=== PATIENT | male | born 1955 | race Hispanic/Latino ===

== ENCOUNTER 2019-04-05 11:16 | Emergency (ER) | payer OTHER ==
[~2019-04-05 11:16] MED LIST: ACET-66 PO; GABA-531 PO; TRAM50TA2 PO
== END 2019-04-05 11:44 | disposition home or self-care (01) ==
LOC: EDH 11:16
DX: H61.23 Impacted cerumen, bilateral (principal); E11.9 Type 2 diabetes mellitus without complications; Z90.49 Acquired absence of other specified parts of digestive tract; Z72.0 Tobacco use
CPT/HCPCS: 99281

== ENCOUNTER 2020-01-19 08:57 | Emergency (ER) | payer OTHER ==
[2020-01-19 09:43] LABS: BASOPHILS % (AUTO) 0.7 % (0.0-5.0); EOSINOPHILS % (AUTO) 4.7 % (0.0-8.0); LYMPHOCYTES % (AUTO) 22.6 % (21.0-51.0); MEAN CORPUSCULAR HEMOGLOBIN 31.4 pg (27.0-33.0); MEAN CORPUSCULAR HGB CONC 34.3 g/dL (32.0-36.0); MEAN CORPUSCULAR VOLUME 91.5 fL (79-99); NEUTROPHILS % (AUTO) 61.4 % (40.0-77.0); PLATELET COUNT (AUTO) 161 K/uL (130-400); RED BLOOD CELL COUNT(AUTO) 4.81 MIL/uL (4.50-6.20); RED CELL DISTRIBUTION WIDTH 12.6 % (11.0-15.5); WHITE BLOOD COUNT (AUTO) 6.8 K/uL (4.8-10.8)
[2020-01-19 09:54] LABS: CREATININE 0.9 mg/dL (0.5-1.5); POTASSIUM 4.8 mmol/L (3.5-5.1)
[2020-01-19 09:56] LABS: ALBUMIN 3.7 g/dL (3.5-5.0); BILIRUBIN,TOTAL 0.6 mg/dL (0.2-1.0); TOTAL PROTEIN, SERUM 7.7 g/dL (6.0-8.3)
== END 2020-01-19 10:22 | disposition home or self-care (01) ==
LOC: EDH 08:57
DX: S91.331A Puncture wound without foreign body, right foot, initial encounter (principal); L03.115 Cellulitis of right lower limb; E11.9 Type 2 diabetes mellitus without complications; Z90.49 Acquired absence of other specified parts of digestive tract; Z72.0 Tobacco use; W26.8XXA Contact with other sharp object(s), not elsewhere classified, initial encounter; Y93.89 Activity, other specified; Y92.098 Other place in other non-institutional residence as the place of occurrence of the external cause; Y99.8 Other external cause status
CPT/HCPCS: 36415; 73630; 80053; 85025

== ENCOUNTER 2020-01-22 13:48 | Emergency (ER) | payer OTHER ==
[2020-01-22 15:24] LABS: BASOPHILS % (AUTO) 0.7 % (0.0-5.0); EOSINOPHILS % (AUTO) 3.3 % (0.0-8.0); LYMPHOCYTES % (AUTO) 21.1 % (21.0-51.0); MEAN CORPUSCULAR HEMOGLOBIN 31.3 pg (27.0-33.0); MEAN CORPUSCULAR VOLUME 92.1 fL (79-99); MONOCYTES % (AUTO) 7.8 % (3.0-13.0); NEUTROPHILS % (AUTO) 66.7 % (40.0-77.0); PLATELET COUNT (AUTO) 196 K/uL (130-400); RED BLOOD CELL COUNT(AUTO) 4.67 MIL/uL (4.50-6.20); RED CELL DISTRIBUTION WIDTH 12.7 % (11.0-15.5); WHITE BLOOD COUNT (AUTO) 6.9 K/uL (4.8-10.8)
[2020-01-22] MEDS ORDERED: LIDOCAINE HCL 2% VISCOUS 15 ML UDCUP ONE (15:27)
[2020-01-22] MEDS ORDERED: MAG HYDROX/AL HYDROX/SIMETH ES 30 ML SUSP UDCUP ONE (15:28)
[2020-01-22] MEDS ORDERED: HYOSCYAMINE SULFATE 0.125 MG TAB.SUBL SL ONE (15:28)
[2020-01-22 15:38] LABS: POTASSIUM 4.5 mmol/L (3.5-5.1)
[2020-01-22 15:44] LABS: ALBUMIN 3.8 g/dL (3.5-5.0); BILIRUBIN,DIRECT 0.1 mg/dL (0.0-0.3); BILIRUBIN,TOTAL 0.4 mg/dL (0.2-1.0); TOTAL PROTEIN, SERUM 6.9 g/dL (6.0-8.3)
== END 2020-01-22 17:20 | disposition home or self-care (01) ==
LOC: EDH 13:48
DX: S91.331A Puncture wound without foreign body, right foot, initial encounter (principal); L03.115 Cellulitis of right lower limb; E11.40 Type 2 diabetes mellitus with diabetic neuropathy, unspecified; X58.XXXA Exposure to other specified factors, initial encounter; Y93.89 Activity, other specified; Y92.89 Other specified places as the place of occurrence of the external cause; Y99.8 Other external cause status
CPT/HCPCS: 36415; 73620; 80048; 80076; 83690; 84145; 85025; 86140

== ENCOUNTER 2020-05-06 09:11 | Emergency (ER) | payer OTHER, SELFPAY ==
[2020-05-06] MEDS ORDERED: SODIUM CHLORIDE 0.9% 1000ML 1,000 ML IV ONE (10:27)
[2020-05-06] MEDS ORDERED: ONDANSETRON HCL 4 MG/2 ML VIAL ONE (10:27)
[2020-05-06 10:31] LABS: BASOPHILS % (AUTO) 0.2 % (0.0-5.0); LYMPHOCYTES % (AUTO) 23.8 % (21.0-51.0); MEAN CORPUSCULAR HEMOGLOBIN 30.7 pg (27.0-33.0); MEAN CORPUSCULAR HGB CONC 34.3 g/dL (32.0-36.0); MEAN CORPUSCULAR VOLUME 89.5 fL (79-99); MONOCYTES % (AUTO) 11.5 % (3.0-13.0); NEUTROPHILS % (AUTO) 62.7 % (40.0-77.0); PLATELET COUNT (AUTO) 175 K/uL (130-400); RED BLOOD CELL COUNT(AUTO) 5.14 MIL/uL (4.50-6.20); RED CELL DISTRIBUTION WIDTH 12.8 % (11.0-15.5); WHITE BLOOD COUNT (AUTO) 4.8 K/uL (4.8-10.8)
[2020-05-06 10:46] LABS: ALBUMIN 3.4 g/dL (3.5-5.0); BILIRUBIN,TOTAL 0.6 mg/dL (0.2-1.0); CREATININE 0.6 mg/dL (0.5-1.5); POTASSIUM 5.2 mmol/L (3.5-5.1); TOTAL PROTEIN, SERUM 7.1 g/dL (6.0-8.3)
[2020-05-06] MEDS ORDERED: CEFTRIAXONE SODIUM 1 GM ONE (11:51)
[2020-05-06] MEDS ORDERED: AZITHROMYCIN 250 MG TABLET PO ONE (11:51)
[2020-05-06] MEDS ORDERED: SODIUM CHLORIDE 0.9% 50 ML IV ONE (11:52)
== END 2020-05-06 12:18 | disposition home or self-care (01) ==
LOC: EDH 09:11
DX: U07.1 COVID-19 (principal); J12.89 Other viral pneumonia; R19.7 Diarrhea, unspecified; E11.9 Type 2 diabetes mellitus without complications; Z90.49 Acquired absence of other specified parts of digestive tract; Z72.0 Tobacco use
CPT/HCPCS: 36415; 71045; 80053; 85025; 93005; 96361; 96374; 96375; 99285; J0696; J2405; J7030; U0003

== ENCOUNTER 2020-05-27 10:29 | Emergency (ER) | payer OTHER, SELFPAY ==
[2020-05-27] MEDS ORDERED: SODIUM CHLORIDE 0.9% 1000ML 1,000 ML IV ONE (10:30)
[2020-05-27] MEDS ORDERED: ONDANSETRON HCL 4 MG/2 ML VIAL ONE (11:23)
[2020-05-27] MEDS ORDERED: KETOROLAC TROMETHAMINE 30MG/ML ONE (11:23)
[2020-05-27 11:25] LABS: EOSINOPHILS % (AUTO) 1.5 % (0.0-8.0); LYMPHOCYTES % (AUTO) 14.4 % (21.0-51.0); MEAN CORPUSCULAR HEMOGLOBIN 29.7 pg (27.0-33.0); MEAN CORPUSCULAR HGB CONC 33.9 g/dL (32.0-36.0); MEAN CORPUSCULAR VOLUME 87.8 fL (79-99); MONOCYTES % (AUTO) 6.6 % (3.0-13.0); NEUTROPHILS % (AUTO) 76.2 % (40.0-77.0); PLATELET COUNT (AUTO) 177 K/uL (130-400); RED BLOOD CELL COUNT(AUTO) 5.01 MIL/uL (4.50-6.20); RED CELL DISTRIBUTION WIDTH 12.5 % (11.0-15.5); WHITE BLOOD COUNT (AUTO) 8.8 K/uL (4.8-10.8)
[2020-05-27 11:27] LABS: APPEARANCE,URINE CLEAR (CLEAR); BILIRUBIN,URINE NEGATIVE (NEGATIVE); COLOR,URINE YELLOW (YELLOW); GLUCOSE, URINE (UA) NEGATIVE (NEGATIVE); KETONES,URINE 15 mg/dL (NEGATIVE); LEUKOCYTE ESTERASE ,URINE NEGATIVE (NEGATIVE); NITRATE,URINE NEGATIVE (NEGATIVE); OCCULT BLOOD,URINE NEGATIVE (NEGATIVE); PH,URINE 6.5 (5.0-8.0); PROTEIN,URINE 100 mg/dL (NEGATIVE); UROBILINOGEN,URINE 0.2 mg/dL (0.2-1.0)
[2020-05-27 11:47] LABS: ALBUMIN 3.9 g/dL (3.5-5.0); BILIRUBIN,DIRECT 0.1 mg/dL (0.0-0.3); BILIRUBIN,TOTAL 0.6 mg/dL (0.2-1.0); CREATININE 0.8 mg/dL (0.5-1.5); POTASSIUM 4.5 mmol/L (3.5-5.1); TOTAL PROTEIN, SERUM 7.6 g/dL (6.0-8.3)
[2020-05-27 12:19] LABS: BACTERIA,URINE Rare /HPF (None Seen); SQUAMOUS EPITHELIAL CELL,UR Rare /HPF (0-2); WBC,URINE 0-1 /HPF (0-1)
== END 2020-05-27 13:13 | disposition home or self-care (01) ==
LOC: EDH 10:29
DX: A08.4 Viral intestinal infection, unspecified (principal); R42 Dizziness and giddiness; E11.9 Type 2 diabetes mellitus without complications; I10 Essential (primary) hypertension; Z86.19 Personal history of other infectious and parasitic diseases
CPT/HCPCS: 36415; 71045; 80048; 80076; 81001; 82550; 83690; 84484; 85025; 93005; 96361; 96374; 96375; 99285; J1885; J2405; J7030

== ENCOUNTER 2023-05-27 14:59 | Emergency (ER) | payer MEDICARE ==
[~2023-05-27] VITALS: Ht 180.3 cm; Wt 83.9 kg
[2023-05-27 15:01] VITALS: BP 154/92; PULSE 88; RESP 18
[2023-05-27 16:00] LABS: BASOPHILS # (AUTO) 0.07 K/uL (0.00-0.20); BASOPHILS % (AUTO) 0.8 % (0.0-5.0); EOSINOPHILS # (AUTO) 0.29 K/uL (0.00-0.70); EOSINOPHILS % (AUTO) 3.4 % (0.0-8.0); IMMATURE GRANULOCYTE ABSOLUTE 0.04 K/uL (0-1); LYMPHOCYTES % (AUTO) 23.1 % (21.0-51.0); MEAN CORPUSCULAR HEMOGLOBIN 30.2 pg (27.0-33.0); MEAN CORPUSCULAR HGB CONC 33.1 g/dL (32.0-36.0); MEAN CORPUSCULAR VOLUME 91.2 fL (79-99); MONOCYTES # (AUTO) 0.6 K/uL (0.1-1.0); MONOCYTES % (AUTO) 7.1 % (3.0-13.0); NEUTROPHILS # (AUTO) 5.6 K/uL (1.8-7.7); NEUTROPHILS % (AUTO) 65.1 % (40.0-77.0); PLATELET COUNT (AUTO) 202 K/uL (130-400); RED BLOOD CELL COUNT(AUTO) 5.37 MIL/uL (4.50-6.20); RED CELL DISTRIBUTION WIDTH 13.2 % (11.0-15.5); WHITE BLOOD COUNT (AUTO) 8.6 K/uL (4.8-10.8)
[2023-05-27 16:13] LABS: CREATININE 1.3 mg/dL (0.5-1.5); POTASSIUM 4.6 mmol/L (3.5-5.1)
[2023-05-27 16:22] LABS: ALBUMIN 4.2 g/dL (3.5-5.0); BILIRUBIN,TOTAL 0.5 mg/dL (0.2-1.0)
== END 2023-05-27 21:24 | disposition left against medical advice (07) ==
LOC: EDH 14:59
DX: R10.9 Unspecified abdominal pain (principal); R19.7 Diarrhea, unspecified; Z53.21 Procedure and treatment not carried out due to patient leaving prior to being seen by health care provider
CPT/HCPCS: 36415; 71045; 74021; 80053; 83690; 84484; 85025; 93005; 99281

== ENCOUNTER 2025-03-01 06:37 | Emergency (ER) | payer OTHER, MEDICARE ==
[~2025-03-01] VITALS: Ht 180.3 cm; Wt 90.7 kg
--- NOTE | 2025-03-01 06:46 | NUR ---
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 SMALL MINOR LACERATION NOTED TO L EYEBROW, NO BLEEDING NOTED AT THIS TIME
--- NOTE | 2025-03-01 07:45 | NUR ---
LEFT EYE BROW CLEANED.STERI-STRIP AND DERMABOND APPLIED. PT TOLERATED PROCEDURE WELL.
[2025-03-01] MEDS: OCTYL 2-CYANOACRYLATE 1 EACH TP ONE (07:47)
--- NOTE | 2025-03-01 08:27 | HMCIMG ---
Exam Type: CT HEAD/BRAIN W/O CONTRAST Clinical Information: injury Comparison: None CT Dose Index (CTDI): 57.33 mGy Dose Length Product (DLP): 956.79 total mGy-cm Findings: The examination is unremarkable. Hardin-white matter junction is preserved. No intra or extra axial lesions or fluid collections are seen. Specifically, hardin and white matter are normal in signal characteristics with normal caliber of ventricles and periventricular cisterns with no evidence of intra or or extra-axial hemorrhage, lacunar infarct, or major territorial infarct, mass, or other abnormality. There are no infarcts. There are no hemorrhages. Periventricular white matter locations are preserved. The orbital contents and structures of the posterior fossa are intact. Impression: Normal CT of the head. This study was performed using dose reduction techniques to include automated exposure control and/or adjustment of the mA and/or kV according to patient size.
--- NOTE | 2025-03-01 08:54 | ERN ---
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 Patient reports laceration to left eyebrow, but denies any neck pain, LOC, vomiting or any other associated symptoms at this time. As per patient, he was having a leg cramp while he was in bed so he stood up to get rid of the cramp on doing so he lost balance and fell forward which caused a laceration to his left eyebrow. Patient rates his pain a six out of 10. Allergies: Coded Allergies: No Known Drug Allergies (Verified Allergy, Unknown, 06/04/18) Home Meds Active Scripts Tramadol HCl (Ultram) 50 Mg Tab, 50 MG PO Q6H PRN for PAIN, #15 TAB Prov:YANETH FIGUEROA [facility] 06/08/18 Gabapentin (Gabapentin) 300 Mg Capsule, 300 MG PO TID for 10 Days, CAP Prov:YANETH FIGUEROA [facility] 06/08/18 Reported Medications Acetaminophen (Tylenol) 500 Mg Tab, 1000 MG PO TID PRN for PAIN LEVEL 1 TO 5, TAB 06/05/18 Past Medical History Past Medical History: Diabetes-Type II, High Cholesterol, Hypertension Surgical History: Cholecystectomy Review of System Dictation Constitutional: Negative for fever,chills, and weight loss Eyes: Negative for injury, pain,redness, and discharge ENT: Positive for left eyebrow laceration Negative for injury,pain or swelling Cardiovascular: Negative for chest pain, palpitations, and edema Respiratory: Negative for shortness of breath, cough, and wheezing, Abdomen/GI: Negative for abdominal pain, nausea, vomiting, diarrhea, and constipation Back: Negative for injury and pain : Negative for injury, bleeding and discharge MS/Extremity: Negative for injury and deformity Skin: Negative for rash, and discoloration Neuro: Negative for headache, weakness, numbness, tingling, and seizure Psych: Negative for suicide ideation, homicidal ideation, and hallucinations Initial Vital Sign VS Vital Signs Date Time Temp Pulse Resp B/P (MAP) Pulse Ox O2 Delivery O2 Flow Rate FiO2 03/01/25 06:38 98.2 104 20 181/94 98 Room Air 03/01/25 06:46 0 21 Physical Exam Dictation General: awake, alert, NAD Head/Face: Normocephalic, 2 cm laceration to left eyebrow, no active bleeding Eyes: PERRL, EOMI, vision at baseline ENT: oral cavity clear, TMs clear, no signs of infection Neck: Trachea midline, supple, no nuchal rigidity Cardiovascular: RRR, normal S1/S2, No MRGs, no JVD Respiratory: CTAB, no respiratory distress, No rales or wheezes Abdomen: Soft, non-tender, non-distended, normal bowel sounds, no guarding or rebound. Skin: Warm, dry, normal turgor, no rash MS/Extremity: Pulses equal, no cyanosis, neurovascular intact, FROM Neuro: COAx4, GCS 15, strength 5/5, CN 2-12 intact, normal cerebellar exam, normal gait, Psych: Normal behavior, mood, and affect normal Results (Laboratory/Radiology) CT Scan Comment: REASON: injury ORDERING PHYSICIAN: SULLY PLUNKETT MD PROCEDURE: HEAD WO - CT HEAD/BRAIN W/O CONTRAST Exam Type: CT HEAD/BRAIN W/O CONTRAST Clinical Information: injury Comparison: None CT Dose Index (CTDI): 57.33 mGy Dose Length Product (DLP): 956.79 total mGy-cm Findings: The examination is unremarkable. Hardin-white matter junction is preserved. No intra or extra axial lesions or fluid collections are seen. Specifically, hardin and white matter are normal in signal characteristics with normal caliber of ventricles and periventricular cisterns with no evidence of intra or or extra-axial hemorrhage, lacunar infarct, or major territorial infarct, mass, or other abnormality. There are no infarcts. There are no hemorrhages. Periventricular white matter locations are preserved. The orbital contents and structures of the posterior fossa are intact. Impression: Normal CT of the head. This study was performed using dose reduction techniques to include automated exposure control and/or adjustment of the mA and/or kV according to patient size. DICTATED BY: ANNIKA OCONNOR MD DATE: 03/01/25821 ED Course ED Course Orders Procedure Category Date Status Time Dermabond (Dermabond) PHA 03/01/25 Complete 07:30 Ct Head/Brain W/O CT 03/01/25 Resulted Contrast 07:27 Current Medications Medications (Trade) Dose Ordered Sig/Shanel Route PRN Reason Start Time Stop Time Status Last Admin Dose Admin Julyl Cyanoacrylate (Dermabond) 1 each ONCE ONCE TP 03/01/25 07:30 03/01/25 07:31 DC 03/01/25 07:47 Vital Signs Date Time Temp Pulse Resp B/P (MAP) Pulse Ox O2 Delivery O2 Flow Rate FiO2 03/01/25 08:00 98.4 89 18 169/94 96 Room Air* 0 21 03/01/25 06:46 98.4 104 18 172/93 96 Room Air* 0 21 03/01/25 06:38 98.2 104 20 181/94 98 Room Air Medical Decision Making MDM MDM: Differential diagnosis: Fall, head injury, eyebrow laceration Risk of complication and/or morbidity or mortality of patient management: None Medications-Per medication reconciliation Need for hospitalization: Patient does not meet criteria for hospitalization. Need for emergency major/minor surgery: No There are no social concerns with this patient. Prescription drug management Prescriptions will include symptomatic care I independently interpreted the test that were performed, results were reviewed by me and considered findings on radiology if ordered. Procedure Wound Location: face (Left eyebrow) Wound Length (cm): 2 Wound's Depth, Shape: superficial Wound Explored: clean Wound Repaired With: Dermabond DX & DISP Disposition: Discharge Departure Impression: Primary Impression: Head injury consultation Additional Impression: Facial laceration Condition: Stable Referrals: ALTHEA BANSAL (PCP) SULLY PLUNKETT MD March 01, 2025 08:54
[2025-03-01 09:55] VITALS: BP 161/98; PULSE 81; RESP 18; TEMP 98.4; O2SAT 96
== END 2025-03-01 09:59 | disposition home or self-care (01) ==
LOC: EDH 06:37
DX: S01.112A Laceration without foreign body of left eyelid and periocular area, initial encounter (principal); E11.9 Type 2 diabetes mellitus without complications; E78.00 Pure hypercholesterolemia, unspecified; I10 Essential (primary) hypertension; Z79.899 Other long term (current) drug therapy; Z90.49 Acquired absence of other specified parts of digestive tract; W06.XXXA Fall from bed, initial encounter; Y93.89 Activity, other specified; Y92.89 Other specified places as the place of occurrence of the external cause; Y99.8 Other external cause status
CPT/HCPCS: 12011; 70450; 99284

== ENCOUNTER 2025-05-15 08:15 | Emergency (ER) | payer OTHER, MEDICAID ==
[~2025-05-15] VITALS: Ht 180.3 cm; Wt 90.7 kg
--- NOTE | 2025-05-15 08:43 | ERN ---
General Chief Complaint: Abdominal Pain Stated Complaint: ABD PAIN Time Seen by MD: 08:33 History of Present Illness Initial Comments Mr. Gonzales is a 69-year-old male who presented to the ED via private vehicle with complaints of lower abdominal pain. He states the pain has been going on for a few weeks in a relapsing and remitting pattern. He says the pain started getting worse yesterday night and now today he rates it as 10/10 on pain scale, he says that the pain is associated with rumbling sensation in his lower abdomen. He also has a history of chronic constipation but he says his last stool was yesterday which was a soft stool. He denies diarrhea, vomiting, and fever. He has a past medical history of diabetes and hypertension. He is status post cholecystectomy. In the ED he is vitals are stable except for blood pressure which is 160 systolic. Allergies: Coded Allergies: No Known Drug Allergies (Verified Allergy, Unknown, 06/04/18) Home Meds Active Scripts Lactulose (Lactulose) 10 Gram/15 Ml Solution, 30 ML PO BID for constipation for 7 Days, #500 ML 0 Refills Prov:TAMMY QUINN MD 05/15/25 Ibuprofen (Ibuprofen) 200 Mg Capsule, 1 CAP PO Q8H for Pain for 10 Days, #30 CAP 0 Refills Prov:TAMMY QUINN MD 05/15/25 Tramadol HCl (Ultram) 50 Mg Tab, 50 MG PO Q6H PRN for PAIN, #15 TAB Prov:YANETH FIGUEROA [facility] 06/08/18 Gabapentin (Gabapentin) 300 Mg Capsule, 300 MG PO TID for 10 Days, CAP Prov:YANETH FIGUEROA [facility] 06/08/18 Reported Medications Acetaminophen (Tylenol) 500 Mg Tab, 1000 MG PO TID PRN for PAIN LEVEL 1 TO 5, TAB 06/05/18 Past Medical History Past Medical History: Diabetes-Type II, High Cholesterol, Hypertension Past Surgical History: Cholecystectomy ROS Dictation ROS Dictation CONSTITUTIONAL: No chills, no fever, no weakness, no diaphoresis, no malaise. HEAD/FACE: No signs of trauma. EENT: No eye pain, no blurred vision, no tearing, no double vision, no ear pain, no ear discharge, no nose pain, no nasal congestion, no throat pain, no throat swelling, no mouth pain. RESPIRATORY: No cough, no orthopnea, no SOB, no stridor, no wheezing. CARDIOVASCULAR: No chest pain, no edema, no palpitations, no syncope. GASTROINTESTINAL/ABDOMINAL: Lower abdominal pain, no constipation, no diarrhea, no nausea, no vomiting. GENITOURINARY: No abnormal discharge, no dysuria, no frequent urination, no hematuria. No complaints of pain in the genitals. MUSCULOSKELETAL: No back pain, no gout, no joint pain, no joint swelling, no muscle pain, no muscle stiffness, no neck pain. INTEGUMENTARY: No change in color, no change in hair/nails, no dryness, no lesion, no lumps, no rash. NEUROLOGICAL/PSYCH: No anxiety, not depressed, no emotional problem, no headache, no numbness, no pre-existing deficit, no history of seizures, no tremors, no weakness. HEMATOLOGIC/LYMPHATIC: Not anemic, no history of blood clots, no apparent bleeding, no bruising, glands not swollen. All Systems Negative, Except as Noted. Physical Exam Physical Exam Dictation Physical Exam Dictation VITAL SIGNS: Reviewed. GENERAL APPEARANCE: Alert, oriented x3 HEAD AND FACE: Non-traumatic. EYES: PERRL, pink conjunctivas, eyelid no trauma, anterior chamber clear. EARS: Pinnas intact and no signs of trauma or erythema. Ear canals clear and no discharge. TMs no erythema. NOSE: No discharge, no bleeding. OROPHARYNX: Mouth normal, teeth no caries, tongue pink. Pharynx clear, no erythema. Tonsils no exudates, no abscesses noted. Mucous membrane moist. NECK: Supple, non-tender, no thyromegaly, no masses, no JVD, no bruits. BREAST: Deferred. CHEST: No tenderness, no crepitus, no paradoxical movement, no retractions. LUNGS: Clear, well-ventilated, symmetric, no rales, no wheezing, no rhonchi, no stridor, good breath sounds bilaterally. HEART: Regular rate, regular rhythm, no murmur, no gallops. VASCULAR: No peripheral edema. ABDOMEN: Soft, positive bowel sounds, nondistended, no guarding, slight tenderness in the right lower quadrant of the abdomen, no rebound, no masses no hepatomegaly, no splenomegaly, no Masterson's sign, no hernias. RECTAL: Deferred. GENITAL: Deferred. NEUROLOGICAL: Normal speech, gross motor function intact, gross sensory function intact. MUSCULOSKELETAL: Neck nontender, full range of motion, back nontender, full range of motion. EXTREMITIES: Nontender, full range of motion. SKIN: Color pink, dry, no turgor, no rash, no lacerations, no abrasions, no contusions. LYMPHATICS: Deferred. Results Laboratory and Microbiology Lab and Micro Result Laboratory Tests Test 05/15/25 08:38 05/15/25 08:39 White Blood Count 7.7 K/uL (4.8-10.8) Red Blood Count 5.01 MIL/uL (4.50-6.20) Hemoglobin 15.7 g/dL (14.0-18.0) Hematocrit 47.8 % (42-54) Mean Corpuscular Volume 95.4 fL (79-99) Mean Corpuscular Hemoglobin 31.3 pg (27.0-33.0) Mean Corpuscular Hemoglobin Concent 32.8 g/dL (32.0-36.0) Red Cell Distribution Width 14.1 % (11.0-15.5) Platelet Count 168 K/uL (130-400) Mean Platelet Volume 9.5 fL (7.5-10.5) Immature Granulocyte % (Auto) 0.6 % (0-1) Neutrophils (%) (Auto) 61.1 % (40.0-77.0) Lymphocytes (%) (Auto) 21.3 % (21.0-51.0) Monocytes (%) (Auto) 8.4 % (3.0-13.0) Eosinophils (%) (Auto) 7.4 % (0.0-8.0) Basophils (%) (Auto) 1.2 % (0.0-5.0) Neutrophils # (Auto) 4.7 K/uL (1.8-7.7) Lymphocytes # (Auto) 1.7 K/uL (1.0-4.8) Monocytes # (Auto) 0.7 K/uL (0.1-1.0) Eosinophils # (Auto) 0.57 K/uL (0.00-0.70) Basophils # (Auto) 0.09 K/uL (0.00-0.20) Absolute Immature Granulocyte (auto 0.05 K/uL (0-1) Nucleated Red Blood Cells 0.0 % (0.0-0.19) Sodium Level 140 mmol/L (136-145) Potassium Level 4.5 mmol/L (3.5-5.1) Chloride Level 103 mmol/L (101-111) Carbon Dioxide Level 32 mmol/L (21-32) Blood Urea Nitrogen 13 mg/dL (7-18) Creatinine 1.0 mg/dL (0.5-1.3) Glomerular Filtration Rate Calc 82 mL/min (>90) Random Glucose 169 mg/dL (70-105) H Total Calcium 8.8 mg/dL (8.5-10.1) Total Bilirubin 0.6 mg/dL (0.2-1.0) Direct Bilirubin 0.1 mg/dL (0.0-0.3) Aspartate Amino Transf (AST/SGOT) 21 U/L (10-37) Alanine Aminotransferase (ALT/SGPT) 30 U/L (12-78) Alkaline Phosphatase 72 U/L (50-136) Total Creatine Kinase 99 U/L (21-232) # Total Protein 7.0 g/dL (6.0-8.3) Albumin 3.9 g/dL (3.5-5.0) Amylase Level 75 U/L (25-115) # Lipase 68 U/L (16-77) Urine Color YELLOW (YELLOW) Urine Appearance CLEAR (CLEAR) Urine pH 6.0 (5.0-8.0) Urine Specific [place] 1.024 (1.001-1.031) Urine Protein 200 mg/dL (NEGATIVE) H Urine Glucose (UA) NEGATIVE mg/dL (NEGATIVE) Urine Ketones NEGATIVE mg/dL (NEGATIVE) Urine Occult Blood MODERATE (NEGATIVE) H Urine Nitrate NEGATIVE (NEGATIVE) Urine Bilirubin NEGATIVE mg/dL (NEGATIVE) Urine Urobilinogen 0.2 mg/dL (0.2-1.0) Urine Leukocyte Esterase NEGATIVE Yasmine/uL Urine RBC 6-10 /HPF (0-1) H Urine WBC 11-25 /HPF (0-1) H Urine Squamous Epithelial Cells RARE /HPF (0-2) Urine Bacteria None /HPF (None Seen) MDM Chief complaint: Patient presented to the ED with complaints of diffuse lower abdominal pain Past medical history: Patient has a past medical history of diabetes mellitus, hypertension and he is status post cholecystectomy Vitals: In the ED his vitals look stable except for elevated blood pressure. Physical examination: Physical examination was unremarkable except for mild tenderness noted in the right lower quadrant. Review of systems: On review of systems the patient has stated that he was constipated and has pain in the lower abdomen that is reproducible with palpation but otherwise unremarkable Laboratory results: Laboratory results were reviewed and revealed no abnormalities. Imaging results: CT abdomen was done to rule out serious causes of lower abdominal pain which revealed no acute abnormalities. Differential: Constipation, pancreatitis, appendicitis Assessment and plan: Based on the history, physical examination, laboratory evaluation, and imaging results we concluded that the patient did not have any acute abdominal conditions. After receiving Toradol IV patient stated that his pain was subsiding slowly. His vitals were stable. Based on our evaluation we believe that the patient does not meet the criteria for admission at this point of time. We are thereby discharging the patient from the emergency department with advice to follow up with his PCP and are prescribing him lactulose for constipation and ibuprofen for pain management. ED Course Orders Procedure Category Date Status Time Cbc With Differential LAB 05/15/25 Complete 08:34 Comprehensive LAB 05/15/25 Complete Metabolic Panel 08:34 Amylase LAB 05/15/25 Complete 08:34 Urinalysis Profile LAB 05/15/25 Complete 08:34 Ct Abdomen/Pelvis CT 05/15/25 Resulted W/Contrast 08:34 Ketorolac PHA 05/15/25 Complete Tromethamine 30mg/Ml 09:00 Creatine Kinase, Total LAB 05/15/25 Complete 08:34 Lipase LAB 05/15/25 Complete 08:34 Hepatic Function Panel LAB 05/15/25 Complete 08:34 Culture Urine ÓSCAR 05/15/25 In Process 09:03 0.9%Nacl 1000ml (Ns PHA 05/15/25 Complete 1000ml) 09:30 Iohexol (Omnipaque) PHA 05/15/25 Complete 09:30 Current Medications Medications (Trade) Dose Ordered Sig/Shanel Route PRN Reason Start Time Stop Time Status Last Admin Dose Admin Iohexol (Omnipaque) 75 ml STK-MED ONCE IV 05/15/25 09:30 05/15/25 09:30 DC Ketorolac Tromethamine (toRADol) 30 mg ONCE ONCE IVP 05/15/25 09:00 05/15/25 09:01 DC 05/15/25 09:17 Sodium Chloride 1,506 ml @ 502 mls/hr ONCE ONCE IV 05/15/25 09:30 05/15/25 12:20 DC 05/15/25 09:17 Vital Signs Date Time Temp Pulse Resp B/P (MAP) Pulse Ox O2 Delivery O2 Flow Rate FiO2 05/15/25 12:18 97.9 73 19 171/96 99 Room Air* 0 05/15/25 11:16 97.7 67 19 170/93 99 Room Air* 0 05/15/25 10:10 70 18 164/90 99 Room Air* 0 05/15/25 09:30 97.5 83 19 170/84 99 Room Air* 0 05/15/25 08:30 79 19 164/98 99 Room Air* 0 05/15/25 08:17 97.3 75 18 166/79 99 Room Air DX & DISP Disposition: Discharge Departure Impression: Primary Impression: Bilateral lower abdominal pain Additional Impression: Constipation Condition: Stable Scripts Lactulose (Lactulose) 10 Gram/15 Ml Solution 30 ML PO BID for constipation for 7 Days, #500 ML 0 Refills Prov: TAMMY QUINN MD 05/15/25 Ibuprofen (Ibuprofen) 200 Mg Capsule 1 CAP PO Q8H for Pain for 10 Days, #30 CAP 0 Refills Prov: TAMMY QUINN MD 05/15/25 Additional Instructions: You presented to the ER with complaints of abdominal pain. We performed a series of laboratory tests to rule out acute conditions like pancreatitis and liver abnormalities which came back negative for these conditions. We performed additional imaging to look for serious causes for abdominal pain which revealed no significant abnormalities. Based on the history, physical examination, laboratory results, and imaging studies we ruled out serious causes of your abdominal pain. We are thereby diagnosed you with abdominal pain due to constipation. We will discharging you from the emergency department on oral lactulose for constipation and ibuprofen for pain management. We advise you to follow up with your PCP in case symptoms do not resolve. If your symptoms increase in frequency/increase in intensity/change in character we advise you to visit the nearest emergency department. Referrals: ALTHEA BANSAL (PCP) I performed a substantive portion of the visit. I have reviewed and personally made and approve the management plan that is documented in the notes by myself with TOMY/resident. I acknowledged full responsibility for the patient's management plan. TAMMY QUINN MD 30, 2025 08:43 YEIMI BACK DO May 16, 2025 07:12
[2025-05-15 08:48] LABS: IMMATURE GRANULOCYTE ABSOLUTE 0.05 K/uL (0-1); NUCLEATED RED BLOOD CELLS 0.0 % (0.0-0.19); PLATELET COUNT (AUTO) 168 K/uL (130-400); RED BLOOD CELL COUNT(AUTO) 5.01 MIL/uL (4.50-6.20); RED CELL DISTRIBUTION WIDTH 14.1 % (11.0-15.5); WHITE BLOOD COUNT (AUTO) 7.7 K/uL (4.8-10.8)
[2025-05-15 08:51] LABS: APPEARANCE,URINE CLEAR (CLEAR); GLUCOSE, URINE (UA) NEGATIVE (NEGATIVE); LEUKOCYTE ESTERASE ,URINE NEGATIVE Leu/uL (NEGATIVE); NITRATE,URINE NEGATIVE (NEGATIVE); OCCULT BLOOD,URINE MODERATE (NEGATIVE)
[2025-05-15 08:52] LABS: ADD UA MICROSCOPIC YES
[2025-05-15 08:57] LABS: CREATININE 1.0 mg/dL (0.5-1.3); GLOMERULAR FILTR. RATE CALC 82.0 mL/min (>90); GLUCOSE,RANDOM 169.0 mg/dL (70-105); SODIUM SERUM 140.0 mmol/L (136-145); UREA NITROGEN, BLOOD 13.0 mg/dL (7-18)
[2025-05-15 08:59] LABS: SQUAMOUS EPITHELIAL CELL,UR RARE /HPF (0-2)
[2025-05-15 09:01] LABS: ASPARTATE AMINOTRANSFERASE 21.0 U/L (10-37); CREATINE KINASE, TOTAL 99.0 U/L (21-232); TOTAL PROTEIN, SERUM 7.0 g/dL (6.0-8.3)
[2025-05-15] MEDS: 0.9%NACL 1000ML 1,506 ML IV ONE (09:17)
[2025-05-15] MEDS ORDERED: IOHEXOL-350 75 ML VIAL IV ONE (09:30)
--- NOTE | 2025-05-15 11:22 | HMCIMG ---
EXAM: CT Abdomen and Pelvis with IV contrast CLINICAL HISTORY: Abdominal pain. TECHNIQUE: Thin collimated axial CT images of the abdomen and pelvis with intravenous contrast were obtained, with sagittal and coronal reformatted images also submitted. CT scan is done according to ALARA (As Low As Reasonably Achievable). COMPARISON: Prior CT abdomen and pelvis dated 06/04/18. FINDINGS: Unremarkable visualized lung parenchyma. No focal abnormality within the liver, pancreas, spleen, or adrenals. Bilateral perinephric fat stranding suggests renal parenchymal disease. Status post cholecystectomy. There is no obvious bowel wall thickening. Bowel loops are normal in caliber without evidence of obstruction or ileus. The appendix is normal. There is no abnormality within the urinary bladder. Moderate prostatomegaly with small calcifications. Scattered atherosclerotic plaques and wall calcifications in the aorta and its branches. No significant narrowing. No lymphadenopathy. No free fluid. There is no acute osseous abnormality. Mild thoracolumbar spondylosis. IMPRESSIONS: No acute abnormality in the abdomen or pelvis. Bilateral perinephric fat stranding suggests renal parenchymal disease. Moderate prostatomegaly. There is an interval cholecystectomy. /[place]
[2025-05-15] MEDS ORDERED: LACT-441 PO (11:42)
[2025-05-15] MEDS ORDERED: IBUP-2482 PO (11:42)
[2025-05-15 12:18] VITALS: BP 171/96; PULSE 73; RESP 19; TEMP 97.8; O2SAT 99
== END 2025-05-15 12:20 | disposition home or self-care (01) ==
LOC: EDH 08:15
DX: R10.31 Right lower quadrant pain (principal); R10.32 Left lower quadrant pain; K59.00 Constipation, unspecified; E11.9 Type 2 diabetes mellitus without complications; E78.00 Pure hypercholesterolemia, unspecified; I10 Essential (primary) hypertension; Z79.899 Other long term (current) drug therapy; Z90.49 Acquired absence of other specified parts of digestive tract
CPT/HCPCS: 99285; 74177; 96374; 96361; 82150; 82550; 80053; 83690; 85025; 87086; 81001; 36415; 80076; J1885; J7030; Q9967

== ENCOUNTER 2025-08-20 09:14 | Emergency (ER) | payer OTHER, MEDICAID ==
[~2025-08-20] VITALS: Ht 180.3 cm; Wt 85.3 kg
[~2025-08-20 09:14] MED LIST changes: +IBUP-2482 PO; +LACT-441 PO
[2025-08-20 10:18] LABS: IMMATURE GRANULOCYTE ABSOLUTE 0.02 K/uL (0-1); NUCLEATED RED BLOOD CELLS 0.0 % (0.0-0.19); PLATELET COUNT (AUTO) 201 K/uL (130-400); RED BLOOD CELL COUNT(AUTO) 5.52 MIL/uL (4.50-6.20); RED CELL DISTRIBUTION WIDTH 12.7 % (11.0-15.5); WHITE BLOOD COUNT (AUTO) 8.2 K/uL (4.8-10.8)
--- NOTE | 2025-08-20 10:21 | EKG ---
[facility] Test Date: 2025-08-20 Test Time: 10:15:28 Pat Name: KATTY VICTOR Department: ED Room: Gender: M [employer]: [id number] : 1955 Requested By: SULLY PLUNKETT Order Number: [id number] Reading MD: Nissa Salazar Measurements Intervals [place] Rate: 86 P: 54 CO: 145 QRS: -62 QRSD: 129 T: 67 QT: 372 QTc: 446 Interpretive Statements Sinus rhythm RBBB and LAFB ST elevation suggests acute pericarditis Compared to ECG 05/27/2023 16:55:20 ST (T wave) deviation now present Electronically Signed On 08-22-2025 12:38:50 [employer] by Nissa Salazar Please click the below link to view image of tracing.
[2025-08-20 10:36] LABS: APPEARANCE,URINE CLEAR (CLEAR); GLUCOSE, URINE (UA) 30 mg/dL (NEGATIVE); LEUKOCYTE ESTERASE ,URINE NEGATIVE Leu/uL (NEGATIVE); NITRATE,URINE NEGATIVE (NEGATIVE); OCCULT BLOOD,URINE NEGATIVE (NEGATIVE)
[2025-08-20 10:38] LABS: CREATININE 1.2 mg/dL (0.5-1.3); GLOMERULAR FILTR. RATE CALC 66.0 mL/min (>90); GLUCOSE,RANDOM 175.0 mg/dL (70-105); SODIUM SERUM 138.0 mmol/L (136-145); UREA NITROGEN, BLOOD 25.0 mg/dL (7-18)
[2025-08-20 10:42] LABS: ASPARTATE AMINOTRANSFERASE 17.0 U/L (10-37); CREATINE KINASE, TOTAL 63.0 U/L (21-232); TOTAL PROTEIN, SERUM 7.3 g/dL (6.0-8.3)
[2025-08-20 10:46] LABS: ADD UA MICROSCOPIC YES
[2025-08-20 10:48] LABS: SQUAMOUS EPITHELIAL CELL,UR RARE /HPF (0-2)
[2025-08-20] MEDS: 0.9% NACL 500ML IV.SOLN 500 ML IV ONE (11:34)
--- NOTE | 2025-08-20 11:59 | HMCIMG ---
EXAM: CT Abdomen and Pelvis Without IV Contrast CLINICAL HISTORY: Upper abdominal pain TECHNIQUE: Axial computed tomography images of the abdomen and pelvis were obtained without intravenous contrast. CONTRAST: No IV contrast administered. COMPARISON: None provided.FINDINGS: LUNG BASES: Bibasilar and subpleural basal atelectatic changes. No pleural effusion. LIVER: Normal in size and attenuation. No focal lesion identified. GALLBLADDER AND BILE DUCTS: Gallbladder is surgically absent (post-cholecystectomy status). No biliary ductal dilatation is evident. PANCREAS: Unremarkable. SPLEEN: Normal in size and attenuation. ADRENAL GLANDS: Unremarkable. KIDNEYS, URETERS, AND BLADDER: Diffuse bilateral perinephric fat stranding???suggestive of medical renal disease. No hydronephrosis, hydroureter, or urinary calculi. Urinary bladder appears normal. STOMACH AND BOWEL: Unremarkable appearance. No bowel obstruction or inflammatory changes. APPENDIX: Normal. No CT evidence of appendicitis. PERITONEUM: No free fluid or free intraperitoneal air. LYMPH NODES: Few subcentimetric bilateral inguinal lymph nodes noted. No significant intra-abdominal or pelvic lymphadenopathy. REPRODUCTIVE ORGANS: Prostate is enlarged, measuring 5.0 ??? 6.8 ??? 5.4 cm (calculated volume ? 96 mL), with scattered prostatic calcifications. Median lobe of prostate indents the bladder base by approximately 9.8 mm. VASCULATURE: Calcified atherosclerotic changes are seen in the intra-abdominal aorta and bilateral iliac vessels. No aneurysmal dilatation. BONES: Multilevel degenerative changes in the spine with reduced intervertebral disc space. No acute or aggressive osseous abnormality. IMPRESSION: Prostatomegaly (volume 96 mL) with calcifications; median lobe indenting bladder base. No other acute intra-abdominal or pelvic abnormality. /[place]
[2025-08-20] MEDS ORDERED: DICY20TA2 PO (12:54)
--- NOTE | 2025-08-20 12:54 | ERN ---
ED Note History of Present Illness Stated Complaint: ABDOMINAL PAIN Chief Complaint: Abdominal Pain Time Seen by MD: 09:21 Dictation: 70-year-old male with diffuse abdominal pain no vomiting or diarrhea no bleeding. Patient reports symptoms for the past few weeks able to tolerate p.o. intake has been seen in the ER for similar episodes. Patient also has a GI appointment for tomorrow sent by his primary care doctor Allergies: Coded Allergies: No Known Drug Allergies (Verified Allergy, Unknown, 06/04/18) Home Meds Active Scripts Lactulose (Lactulose) 10 Gram/15 Ml Solution, 30 ML PO BID for constipation for 7 Days, #500 ML 0 Refills Prov:TAMMY QUINN MD 05/15/25 Ibuprofen (Ibuprofen) 200 Mg Capsule, 1 CAP PO Q8H for Pain for 10 Days, #30 CAP 0 Refills Prov:TAMMY QUINN MD 05/15/25 Tramadol HCl (Ultram) 50 Mg Tab, 50 MG PO Q6H PRN for PAIN, #15 TAB Prov:YANETH FIG[facility]EROA [facility] 06/08/18 Gabapentin (Gabapentin) 300 Mg Capsule, 300 MG PO TID for 10 Days, CAP Prov:YANETH FIGUEROA [facility] 06/08/18 Reported Medications Acetaminophen (Tylenol) 500 Mg Tab, 1000 MG PO TID PRN for PAIN LEVEL 1 TO 5, TAB 06/05/18 Past Medical History Past Medical History: Diabetes-Type II Surgical History: Cholecystectomy Review of System Dictation Constitutional: Negative for fever,chills, and weight loss Eyes: Negative for injury, pain,redness, and discharge ENT: Negative for injury,pain or swelling Cardiovascular: Negative for chest pain, palpitations, and edema Respiratory: Negative for shortness of breath, cough, and wheezing, Abdomen/GI: Per HPI : Negative for injury, bleeding and discharge MS/Extremity: Negative for injury and deformity Skin: Negative for rash, and discoloration Neuro: Negative for headache, weakness, numbness, tingling, and seizure Psych: Negative for suicide ideation, homicidal ideation, and hallucinations Initial Vital Sign VS Vital Signs Date Time Temp Pulse Resp B/P (MAP) Pulse Ox O2 Delivery O2 Flow Rate FiO2 08/20/25 09:20 97.9 100 17 143/114 98 Room Air 0 Physical Exam Dictation General: awake, alert, NAD Head/Face: Normocephalic, atraumatic Eyes: PERRL, EOMI, vision at baseline ENT: oral cavity clear, TMs clear, no signs of infection Neck: Trachea midline, supple, no nuchal rigidity Cardiovascular: RRR, normal S1/S2, No MRGs, no JVD Respiratory: CTAB, no respiratory distress, No rales or wheezes Abdomen: Soft, non-tender, non-distended, normal bowel sounds, no guarding or rebound. Skin: Warm, dry, normal turgor, no rash MS/Extremity: Pulses equal, no cyanosis, neurovascular intact, FROM Neuro: COAx4, GCS 15, strength 5/5, CN 2-12 intact, normal cerebellar exam, normal gait, Psych: Normal behavior, mood, and affect normal Results (Laboratory/Radiology) Laboratory/Radiology Laboratory Tests Test 08/20/25 09:18 08/20/25 10:12 Urine Color YELLOW (YELLOW) Urine Appearance CLEAR (CLEAR) Urine pH 5.5 (5.0-8.0) Urine Specific [place] 1.025 (1.001-1.031) Urine Protein 100 mg/dL (NEGATIVE) H Urine Glucose (UA) 30 mg/dL (NEGATIVE) H Urine Ketones NEGATIVE mg/dL (NEGATIVE) Urine Occult Blood NEGATIVE (NEGATIVE) Urine Nitrate NEGATIVE (NEGATIVE) Urine Bilirubin NEGATIVE mg/dL (NEGATIVE) Urine Urobilinogen 0.2 mg/dL (0.2-1.0) Urine Leukocyte Esterase NEGATIVE Yasmine/uL Urine RBC 0-1 /HPF (0-1) Urine WBC 2-5 /HPF (0-1) H Urine Squamous Epithelial Cells RARE /HPF (0-2) Urine Bacteria None /HPF (None Seen) White Blood Count 8.2 K/uL (4.8-10.8) Red Blood Count 5.52 MIL/uL (4.50-6.20) Hemoglobin 16.8 g/dL (14.0-18.0) Hematocrit 50.8 % (42-54) Mean Corpuscular Volume 92.0 fL (79-99) Mean Corpuscular Hemoglobin 30.4 pg (27.0-33.0) Mean Corpuscular Hemoglobin Concent 33.1 g/dL (32.0-36.0) Red Cell Distribution Width 12.7 % (11.0-15.5) Platelet Count 201 K/uL (130-400) Mean Platelet Volume 10.1 fL (7.5-10.5) Immature Granulocyte % (Auto) 0.2 % (0-1) Neutrophils (%) (Auto) 67.3 % (40.0-77.0) Lymphocytes (%) (Auto) 18.8 % (21.0-51.0) L Monocytes (%) (Auto) 6.6 % (3.0-13.0) Eosinophils (%) (Auto) 6.1 % (0.0-8.0) Basophils (%) (Auto) 1.0 % (0.0-5.0) Neutrophils # (Auto) 5.5 K/uL (1.8-7.7) Lymphocytes # (Auto) 1.5 K/uL (1.0-4.8) Monocytes # (Auto) 0.5 K/uL (0.1-1.0) Eosinophils # (Auto) 0.50 K/uL (0.00-0.70) Basophils # (Auto) 0.08 K/uL (0.00-0.20) Absolute Immature Granulocyte (auto 0.02 K/uL (0-1) Nucleated Red Blood Cells 0.0 % (0.0-0.19) Sodium Level 138 mmol/L (136-145) Potassium Level 4.0 mmol/L (3.5-5.1) Chloride Level 102 mmol/L (101-111) Carbon Dioxide Level 26 mmol/L (21-32) Blood Urea Nitrogen 25 mg/dL (7-18) H Creatinine 1.2 mg/dL (0.5-1.3) Glomerular Filtration Rate Calc 66 mL/min (>90) Random Glucose 175 mg/dL (70-105) H Lactic Acid Level 3.2 mmol/L (0.8-2.5) H Total Calcium 8.7 mg/dL (8.5-10.1) Total Bilirubin 0.4 mg/dL (0.2-1.0) Direct Bilirubin 0.1 mg/dL (0.0-0.3) Aspartate Amino Transf (AST/SGOT) 17 U/L (10-37) Alanine Aminotransferase (ALT/SGPT) 27 U/L (12-78) Alkaline Phosphatase 62 U/L (50-136) Total Creatine Kinase 63 U/L (21-232) # Troponin I High Sensitivity 25 ng/L (4-75) Total Protein 7.3 g/dL (6.0-8.3) Albumin 3.9 g/dL (3.5-5.0) Lipase 120 U/L (16-77) H Labs Reviewed?: Yes EKG Comment: EKG heart rate of 86 normal sinus rhythm no STEMI, normal intervals ED Course ED Course Orders Procedure Category Date Status Time 12 Lead Ekg Tracing- EKG 08/20/25 Complete Technical 09:56 Basic Metabolic Panel LAB 08/20/25 Complete 09:56 Blood Cult ÓSCAR 08/20/25 In Process 09:56 Cbc With Differential LAB 08/20/25 Complete 09:56 Hepatic Function Panel LAB 08/20/25 Complete 09:56 Creatine Kinase, Total LAB 08/20/25 Complete 09:56 Lactic Acid LAB 08/20/25 Complete 09:56 Lipase LAB 08/20/25 Complete 09:56 Troponin I High LAB 08/20/25 Complete Sensitivity 09:56 Urinalysis Profile LAB 08/20/25 Complete 09:56 Ct Abd/Pel Wo Con CT 08/20/25 Resulted Renal/Appy 09:56 Ketorolac PHA 08/20/25 Complete Tromethamine 15mg/Ml 09:56 Ondansetron 4mg Inj PHA 08/20/25 Complete (Zofran 4mg Inj) 09:56 0.9% Nacl 500ml PHA 08/20/25 Complete Iv.Soln (Ns 500ml 10:00 Dicyclomine Hcl PHA 08/20/25 Logged (Bentyl 20mg Inj) 12:50 Current Medications Medications (Trade) Dose Ordered Sig/Shanel Route PRN Reason Start Time Stop Time Status Last Admin Dose Admin Ketorolac Tromethamine (toRADol) 15 mg ONCE STAT IV 08/20/25 09:56 08/20/25 10:05 DC 08/20/25 11:45 Ondansetron HCl (zoFRAN 4MG INJ) 4 mg ONCE STAT IVP 08/20/25 09:56 08/20/25 10:05 DC 08/20/25 11:34 Sodium Chloride 500 ml @ 0 mls/hr ONCE ONCE IV 08/20/25 10:00 08/20/25 10:05 DC 08/20/25 11:34 Vital Signs Date Time Temp Pulse Resp B/P (MAP) Pulse Ox O2 Delivery O2 Flow Rate FiO2 08/20/25 09:20 97.9 100 17 143/114 98 Room Air 0 Medical Decision Making MDM MDM: Differential diagnosis: Rationale: Tests considered and ordered secondary to shared decision making include: Previous outside records reviewed: Old ER visits. Risk of complication and/or morbidity or mortality of patient management: None Medications-Per medication reconciliation Need for hospitalization: Patient does not meet criteria for hospitalization. Need for emergency major/minor surgery: No There are no social concerns with this patient. Prescription drug management Prescriptions will include symptomatic care Patient's prior external medical records from other ER visits were reviewed by me as indicated. Prior testing and results from previous visits were reviewed. Prior tests were taken into account with medical decision making and resource utilization, independent historian/historians were used to obtain complete medical history. I independently interpreted the test that were performed, results were reviewed by me and considered findings on radiology if ordered. Medical management and examination interpretation discussions were had by me with other qualified healthcare professionals as indicated for the patient's care. 69-year-old male with acute on chronic abdominal pain stable exam negative workup labs EKG and CT scan of the abdomen and pelvis are all stable patient has a GI appointment for tomorrow prescriptions given. DX & DISP Disposition: Discharge Departure Impression: Primary Impression: Acute abdominal pain Condition: Stable Scripts Dicyclomine HCl (Bentyl) 20 Mg Tab 1 TAB PO BID for irritable bowel symptoms for 5 Days, #10 TAB 0 Refills Prov: SULLY PLUNKETT MD 08/20/25 Referrals: ALTHEA BANSAL (PCP) SULLY PLUNKETT MD Aug 20, 2025 12:54
[2025-08-20 13:39] VITALS: BP 149/96; PULSE 90; RESP 18; TEMP 97.9; O2SAT 98
[2025-08-20] MEDS: DICYCLOMINE 20MG (10MG/ML) AMP IM STA (13:45)
== END 2025-08-20 14:00 | disposition home or self-care (01) ==
LOC: EDH 09:14
DX: R10.84 Generalized abdominal pain (principal); E11.9 Type 2 diabetes mellitus without complications; Z79.899 Other long term (current) drug therapy; Z90.49 Acquired absence of other specified parts of digestive tract
CPT/HCPCS: 99285; 74176; 96374; 96375; 82550; 80076; 84484; 80048; 83690; 85025; 87040 ×2; 83605; 81001; 36415; 93005; 96372; J1885; J7040; J2405; J0500